=== PATIENT | male | born 1960 | race Caucasian/White ===

== ENCOUNTER 2020-04-18 06:20 | Day surgery (SDC) | payer MEDICAID ==
[~2020-04-18 06:20] MED LIST: ACETAMINOPHEN PO; AMPICILLIN500 MG PO; ASSURED PO; COMBIVENT RESPIMAT IN; LUTEIN6 MG PO; MAXZIDE-2537.5 MG/TA PO; OMEPRAZOLE20 MG PO; TAMSULOSIN HCL0.4 MG PO
[2020-04-18 07:13] LABS: BARBITURATES NEGATIVE (NEGATIVE); COCAINE NEGATIVE (NEGATIVE); METHADONE NEGATIVE (NEGATIVE); OXCYCODONE NEGATIVE (NEGATIVE); TETRAHYDROCANNABIONOL NEGATIVE (NEGATIVE); TRICYLIC ANTIDEPRESSANTS NEGATIVE (NEGATIVE)
[2020-04-18 09:43] VITALS: BP 114/64
== END 2020-04-18 10:02 | disposition home or self-care (01) ==
LOC: ENDO 06:20 → ORM 07:00 → ENDO 07:00 → ORM 07:30 → ENDO 07:40
PROVIDERS: ATTEND Surgery
DX: D12.5 Benign neoplasm of sigmoid colon (principal); K64.8 Other hemorrhoids; K21.9 Gastro-esophageal reflux disease without esophagitis; K44.9 Diaphragmatic hernia without obstruction or gangrene; F17.210 Nicotine dependence, cigarettes, uncomplicated; Z80.0 Family history of malignant neoplasm of digestive organs; Z11.59 Encounter for screening for other viral diseases